=== PATIENT | female | born 1975 | race Caucasian/White ===

== ENCOUNTER 2016-07-19 00:13 | Emergency (ER) | payer BC ==
[~2016-07-19] VITALS: Ht 172.7 cm; Wt 120.9 kg
[~2016-07-19 00:13] MED LIST: FRRS300 PO; GLC500 PO; LEVO75TA33 PO
[2016-07-19 00:18] VITALS: TEMP 36.7; Ht 172.7 cm; Wt 120.9 kg
[2016-07-19 00:26] VITALS: O2SAT 98
[2016-07-19] MEDS ORDERED: KETOROLAC TROMETHAMINE 30 MG/ML VIAL IV STA (00:37)
[2016-07-19] MEDS ORDERED: SODIUM CHLORIDE 0.9% 1000ML 1,000 ML IV ONE (00:45)
[2016-07-19 00:47] LABS: BASO % 0.3 %; BASO ABS # 0.03 K/uL (0-0.2); COMPLETE YES; EOS % 2.4 %; HEMATOCRIT 41.2 % (37-47); IG% 0.2 %; LYMPH % 33.1 %; LYMPH ABS # 3.18 K/uL (1.2-3.4); MEAN CELL VOLUME 86.7 fL (80-100); MEAN CORPUSCULAR HEMOGLOBIN 28.2 pg (25-34); MEAN CORPUSCULAR HGB CONC 32.5 g/dl (32-36); MEAN PLATELET VOLUME 9.4 fL (7.4-10.4); MONO % 9.7 %; NEUT % 54.3 %; PLATELET COUNT 366 K/uL (130-400); RED BLOOD COUNT 4.75 M/uL (4.2-5.4); WHITE BLOOD COUNT 9.61 K/uL (4.8-10.8)
[2016-07-19 00:53] LABS: BUN/CREATININE RATIO 13.3 (10-20); CALCIUM 8.8 mg/dl (8.5-10.1); CREATININE 0.9 mg/dl (0.60-1.20); MAGNESIUM 2.1 mg/dl (1.8-2.4); POTASSIUM 3.7 mmol/L (3.5-5.1)
[2016-07-19 01:03] LABS: ALB/GLOB RATIO 0.9 (0.9-2); CKMB/CK RATIO 0.8 (0-3.0); THYROID STIMULATING HORMONE 3.02 uIu/ml (0.300-4.500)
[2016-07-19 01:50] LABS: URINE APPEARANCE CLEAR (CLEAR); URINE BILIRUBIN NEG (NEG); URINE COLOR YELLOW; URINE NITRITE NEG (NEG); URINE SPECIFIC GRAVITY 1.008 (1.000-1.030); UROBILINOGEN NEG (NEG); ZZUR CULT IF INDIC CLEAN CATCH NO
[2016-07-19] MEDS ORDERED: LEVO137C2 PO (02:09)
[2016-07-19] MEDS ORDERED: FERR1TAB23 PO (02:09)
[2016-07-19] MEDS ORDERED: CHOL20009 PO (02:09)
[2016-07-19] MEDS ORDERED: T3 PO (02:14)
[2016-07-19 02:18] LABS: MANUAL MICROSCOPIC REQUIRED? NO; REVIEW REQ? NO
[2016-07-19] MEDS ORDERED: ALUMINUM/MAGNESIUM SUSP 30 ML UDC ONE (02:42)
[2016-07-19] MEDS ORDERED: LIDOCAINE HCL 2% VISC SOLN 20 ML UDC ONE (02:42)
[2016-07-19] MEDS ORDERED: GI COCKTAIL PO ONE (02:45)
--- NOTE | 2016-07-19 03:19 | EMERGENCY ROOM VISIT NOTE ---
ED Visit Note First contact with patient: 02:32 The patient was seen and examined with Kd Chavez PA-C. I agree with the history, physical and findings. Please see the note for disposition and details. ECG and troponin x 2 negative. D Dimer negative. Outpatient follow up discussed. Will return for worsening symptoms.
[2016-07-19 03:45] VITALS: BP 131/74; PULSE 66; O2SAT 99
--- NOTE | 2016-07-19 08:18 | DIAGNOSTIC IMAGING REPORT ---
CHEST 2 VIEWS ROUTINE CLINICAL HISTORY: Central chest pain. COMPARISON STUDY: Chest radiograph May 16, 2011. FINDINGS: Lung volumes are normal. Lungs are clear. There is no pneumothorax or pleural effusion. Cardiac size is normal. Mediastinal contours are normal. There is no evidence of pulmonary edema. IMPRESSION: No acute cardiopulmonary findings. Electronically signed by: Cameron Goodman M.D. 07/19/2016 8:17 AM Dictated Date/Time: 07/19/2016 8:17 AM
--- NOTE | 2016-07-20 00:18 | EMERGENCY ROOM VISIT NOTE ---
History First contact with patient: 00:18 Chief Complaint: CHEST PAIN Stated Complaint: CHEST PAIN Nursing Triage Summary: pt states a couple nights ago she was woken up with cp, and it has just got worse since then, feels like sore muscle History of Present Illness The patient is a 40 year old female who presents to the Emergency Room with complaints of substernal chest pain that woke her from sleep about 2 hours ago. Patient states that her pain is a dull 2/10 that feels like an ache. She does have recent travel history to [place]. She is without fever, chills, shortness of breath, or extremity swelling. The patient does not have a history of cardiac disease. She does not report radiation of her pain. She has not taken anything [id number] for her discomfort. Review of Systems More than 10 systems were reviewed and otherwise negative with the exception of history of present illness. Past Medical/Surgical History Hypothyroid Family History No pertinent family history Social History Smoking Status: Never Smoker Alcohol Use: none Marital Status: Occupation Status: unemployed Current/Historical Medications Scheduled Cholecalciferol (Vitamin D), 1-2 CAP PO DAILY Ferrous Sulfate (Iron), 650 MG PO DAILY Levothyroxine Sodium (Tirosint), 137 MCG PO DAILY [T3], 0.25 TAB PO Q2D Allergies Coded Allergies: Spironolactone (Verified Allergy, Intermediate, RASH/SWELLING, 07/19/16) Penicillins (Verified Allergy, Unknown, RASH/BAD YEAST INFECTIONS, 07/19/16 ) Physical Exam Vital Signs Date Time Temp Pulse Resp B/P Pulse Ox O2 Delivery O2 Flow Rate FiO2 07/19/16 03:45 66 16 131/74 99 Room Air 07/19/16 01:55 65 07/19/16 01:54 64 18 125/79 98 Room Air 07/19/16 01:13 75 18 135/89 98 Room Air 07/19/16 00:26 98 Room Air 07/19/16 00:18 36.7 79 17 175/90 99 Room Air Pain Rating (0-10): 0 Physical Exam VITALS: Vitals are noted on the nurse's note and reviewed by myself. Vital signs stable. GENERAL: Well-developed, well-nourished, white female, who is in no acute distress and resting comfortably. Patient is cooperative with the examination. HEAD: Normocephalic atraumatic. NECK: Supple without nuchal rigidity. No lymphadenopathy. No thyromegaly. Cervical spine is nontender. HEART: Regular rate and rhythm without murmurs gallops or rubs. LUNGS: Clear to auscultation bilaterally without wheezes, rales or rhonchi. No retractions or accessory muscle use. ABDOMEN: Positive normal bowel sounds x 4. Soft, nontender, without masses or organomegaly. No guarding or rebound tenderness. MUSCULOSKELETAL: No muscle atrophy, erythema, or edema noted. Full range of motion without joint tenderness in all extremities. Negative Homans sign bilateral Medical Decision & Procedures ER Provider Diagnostic Interpretation: CHEST 2 VIEWS ROUTINE CLINICAL HISTORY: Central chest pain. COMPARISON STUDY: Chest radiograph May 16, 2011. FINDINGS: Lung volumes are normal. Lungs are clear. There is no pneumothorax or pleural effusion. Cardiac size is normal. Mediastinal contours are normal. There is no evidence of pulmonary edema. IMPRESSION: No acute cardiopulmonary findings Laboratory Results 07/19/16 00:25 Red Blood Count 4.75, Mean Corpuscular Volume 86.7, Mean Corpuscular Hemoglobin 28.2, Mean Corpuscular Hemoglobin Concent 32.5, Mean Platelet Volume 9.4, Neutrophils (%) (Auto) 54.3, Lymphocytes (%) (Auto) 33.1, Monocytes (%) (Auto) 9.7, Eosinophils (%) (Auto) 2.4, Basophils (%) (Auto) 0.3, Neutrophils # (Auto) 5.22, Lymphocytes # (Auto) 3.18, Monocytes # (Auto) 0.93, Eosinophils # (Auto) 0.23, Basophils # (Auto) 0.03 07/19/16 00:25 Test 07/19/16 00:25 07/19/16 00:41 07/19/16 01:35 07/19/16 02:52 White Blood Count 9.61 K/uL (4.8-10.8) Red Blood Count 4.75 M/uL (4.2-5.4) Hemoglobin 13.4 g/dL (12.0-16.0) Hematocrit 41.2 % (37-47) Mean Corpuscular Volume 86.7 fL (80-100) Mean Corpuscular Hemoglobin 28.2 pg (25-34) Mean Corpuscular Hemoglobin Concent 32.5 g/dl (32-36) Platelet Count 366 K/uL (130-400) Mean Platelet Volume 9.4 fL (7.4-10.4) Neutrophils (%) (Auto) 54.3 % Lymphocytes (%) (Auto) 33.1 % Monocytes (%) (Auto) 9.7 % Eosinophils (%) (Auto) 2.4 % Basophils (%) (Auto) 0.3 % Neutrophils # (Auto) 5.22 K/uL (1.4-6.5) Lymphocytes # (Auto) 3.18 K/uL (1.2-3.4) Monocytes # (Auto) 0.93 K/uL (0.11-0.59) Eosinophils # (Auto) 0.23 K/uL (0-0.5) Basophils # (Auto) 0.03 K/uL (0-0.2) RDW Standard Deviation 42.4 fL (36.4-46.3) RDW Coefficient of Variation 13.3 % (11.5-14.5) Immature Granulocyte % (Auto) 0.2 % Immature Granulocyte # (Auto) 0.02 K/uL (0.00-0.02) Anion Gap 9.0 mmol/L (3-11) Est Creatinine Clear Calc Drug Dose 112.6 ml/min Estimated GFR () 92.0 Estimated GFR (Non- 79.4 BUN/Creatinine Ratio 13.3 (10-20) Calcium Level 8.8 mg/dl (8.5-10.1) Magnesium Level 2.1 mg/dl (1.8-2.4) Total Bilirubin 0.4 mg/dl (0.2-1) Aspartate Amino Transf (AST/SGOT) 14 U/L (15-37) Alanine Aminotransferase (ALT/SGPT) 22 U/L (12-78) Alkaline Phosphatase 60 U/L (45-117) Total Creatine Kinase 83 U/L (26-192) Creatine Kinase MB 0.7 ng/ml (0.5-3.6) Creatine Kinase MB Ratio 0.8 (0-3.0) Total Protein 7.6 gm/dl (6.4-8.2) Albumin 3.7 gm/dl (3.4-5.0) Globulin 3.9 gm/dl (2.5-4.0) Albumin/Globulin Ratio 0.9 (0.9-2) Lipase 118 U/L (73-393) Thyroid Stimulating Hormone (TSH) 3.020 uIu/ml (0.300-4.500) Bedside D-Dimer 364 ng/mlFEU (0-450) Urine Color YELLOW Urine Appearance CLEAR (CLEAR) Urine pH 7.0 (4.5-7.5) Urine Specific [place]aker 1.008 (1.000-1.030) Urine Protein NEG (NEG) Urine Glucose (UA) NEG (NEG) Urine Ketones NEG (NEG) Urine Occult Blood 2+ (NEG) Urine Nitrite NEG (NEG) Urine Bilirubin NEG (NEG) Urine Urobilinogen NEG (NEG) Urine Leukocyte Esterase NEG (NEG) Urine WBC (Auto) 0 /hpf (0-5) Urine RBC (Auto) 0-4 /hpf (0-4) Urine Hyaline Casts (Auto) 0 /lpf (0-5) Urine Epithelial Cells (Auto) 5-10 /lpf (0-5) Urine Bacteria (Auto) NEG (NEG) Bedside Troponin I 0.000 ng/ml (0-0.045) Medications Administered Medications (Trade) Dose Ordered Sig/Dallin Route Start Time Stop Time Status Last Admin Dose Admin Sodium Chloride (Nss 1000ml) 1,000 ml @ 999 mls/hr Q1H1M ONCE IV 07/19/16 00:45 07/19/16 01:45 DC 07/19/16 00:42 999 MLS/HR Ketorolac Tromethamine (Toradol Inj) 30 mg NOW STAT IV 07/19/16 00:37 07/19/16 00:40 DC 07/19/16 00:43 30 MG Miscellaneous Medication (Gi Cocktail) 24 ml NOW ONCE PO 07/19/16 02:45 07/19/16 02:46 DC 07/19/16 02:45 24 ML Al Hydroxide/Mg Hydroxide (Maalox Susp) 30 ml STK-MED ONCE .ROUTE 07/19/16 02:42 07/19/16 02:45 DC 07/19/16 02:49 30 ML Lidocaine HCl (Viscous Lidocaine 2% Soln) 20 ml STK-MED ONCE .ROUTE 07/19/16 02:42 07/19/16 02:46 DC 07/19/16 02:49 20 ML ECG Change: Normal sinus rhythm at 82 bpm Normal ECG When compared with ECG of 21-SARA-2012 19:01, No significant change was found Confirmed by ANGELIC LEW MD ([id number]) on 07/19/2016 12:51:00 PM ED Course Physical exam and history were performed. Nursing notes and EMR were reviewed. Patient appears to have chest pain symptoms for the past several hours. The patient does not appear toxic on examination. EKG was performed was normal sinus rhythm at [address] elevation or evidence of ischemia. IV access was established and labs were obtained. Chest x-ray was performed. The patient was hydrated and medicated as above. The patient is as above and was reviewed. She does not have a significantly elevated white blood cell count, gross anemia, bandemia, or significant electrolyte imbalance. Lipase and transaminases are nondiagnostic. TSH is with euthyroid state. D-dimer 1 is negative. Troponin 2 was negative. Chest x-ray was without significant acute findings. The case was discussed with my attending physician, Dr Ram, who was with apparently evaluated the patient. We agreed the patient appears stable for discharge home. She does not appear to have an acute cardiopulmonary process. Her symptoms could be viral in origin, or possible GI related. The patient is to follow closely with her primary care physician for further care management. She was otherwise invited back to ER with any new, worsening, or concerning symptoms. The chart was completed utilizing [employer] Speech Voice Recognition Software. Grammatical errors, random word insertions, pronoun errors, and incomplete sentences are an occasional consequence of this system due to software limitations, ambient noise, and hardware issues. Any formal questions or concerns about the content, text, or information contained within the body of this dictation should be directly addressed to the provider for clarification. . Medical Decision Differential diagnosis includes, but is not limited to: Myocardial infarction, dysrhythmia, pericarditis, pneumothorax, aortic aneurysm/dissection, DVT/PE, anxiety, GERD, PUD, electrolyte imbalance, thyroid disorder, pneumonia, bronchitis, pancreatitis, and others Impression Primary Impression: Chest pain Departure Information Dispostion Home / Self-Care Condition GOOD Forms HOME CARE DOCUMENTATION FORM, IMPORTANT VISIT INFORMATION Patient Instructions [facility] Additional Instructions You were seen and evaluated today on an emergency basis only. This is not a substitute for, or an effort to provide, complete comprehensive medical care. It is not possible to recognize and treat all injuries or illnesses in a single emergency department visit. For this reason it is recommended that you followup with your primary care physician on Wednesday or Wednesday for ongoing care and evaluation. Drink plenty fluids and remain well hydrated. Continue your home medications as prescribed You are welcome to return to the emergency department anytime with new, worsening, or concerning symptoms.
[2016-08-07] MEDS ORDERED: LIOT5TAB PO (12:44)
[2016-08-07] MEDS ORDERED: ASCO-63 PO (12:44)
[2016-08-28] MEDS ORDERED: OXYC-57 PO (09:13)
[2016-08-28] MEDS ORDERED: IBUP600T44 PO (09:13)
== END 2016-07-19 03:45 | disposition home or self-care (01) ==
LOC: C.EDB 00:15 → C.EDA 03:45
DX: R07.9 Chest pain, unspecified (principal); E03.9 Hypothyroidism, unspecified; Z79.899 Other long term (current) drug therapy

== ENCOUNTER 2016-08-28 06:37 | Day surgery (SDC) | payer BC ==
[2016-08-07 12:44] VITALS: BMI 40.0
--- NOTE | 2016-08-07 13:05 | PAT Medication Instructions ---
Service Date Aug 07, 2016. Current Home Medication List Ascorbic Acid (Vitamin C), 7-8 TAB PO LUNCH Cholecalciferol (Vitamin D), 3-4 CAP PO LUNCH Ferrous Sulfate (Iron), 650 MG PO LUNCH Levothyroxine Sodium (Tirosint), 137 MCG PO QAM Liothyronine Sodium (Cytomel), 0.25 TAB PO Q2D Medication Instructions For Your Scheduled Surgery - Hold the following medications the morning of surgery: Ascorbic Acid (Vitamin C), 7-8 TAB PO LUNCH Cholecalciferol (Vitamin D), 3-4 CAP PO LUNCH Ferrous Sulfate (Iron), 650 MG PO LUNCH - Take the following medications the morning of surgery with a sip of water: Levothyroxine Sodium (Tirosint), 137 MCG PO QAM Liothyronine Sodium (Cytomel), 0.25 TAB PO Q2D If you have any questions please call us at [phone] or [phone] ( Sandra) or [phone]
[2016-08-07 13:32] LABS: BASO % 0.2 %; BASO ABS # 0.02 K/uL (0-0.2); COMPLETE YES; IG% 0.2 %; LYMPH % 30.3 %; LYMPH ABS # 2.62 K/uL (1.2-3.4); MEAN CELL VOLUME 86.3 fL (80-100); MEAN CORPUSCULAR HEMOGLOBIN 28.1 pg (25-34); MEAN CORPUSCULAR HGB CONC 32.6 g/dl (32-36); MEAN PLATELET VOLUME 9.5 fL (7.4-10.4); MONO % 8.4 %; NEUT % 56.9 %; PLATELET COUNT 327 K/uL (130-400); RED BLOOD COUNT 4.52 M/uL (4.2-5.4); WHITE BLOOD COUNT 8.65 K/uL (4.8-10.8)
[~2016-08-28] VITALS: Ht 175.3 cm; Wt 122.5 kg
[~2016-08-28 06:37] MED LIST changes: +ASCO-63 PO; +CEFAZOLIN 3000 MG/65 ML D5W 50 ML IV SCH; +CHOL20009 PO; +FERR1TAB23 PO; -FRRS300 PO; -GLC500 PO; +LACTATED RINGER'S 1000ML 1,000 ML IV SCH; +LEVO137C2 PO; -LEVO75TA33 PO; +LIOT5TAB PO; +PATIENT'S ALLERGY INFO NEEDS ENTERED SCH
[2016-08-28] MEDS ORDERED: LIDOCAINE HCL 2% 2 ML VIAL (20MG/ML) ONE (06:45)
[2016-08-28] MEDS ORDERED: ROCURONIUM BROMIDE 10 MG/ML 5 ML VIAL ONE (06:45)
[2016-08-28] MEDS ORDERED: MIDAZOLAM HCL 1 MG/ML 2ML VIAL ONE (06:45)
[2016-08-28] MEDS ORDERED: DEXAMETHASONE SOD INJ 4 MG/ML VIAL ONE (06:45)
[2016-08-28] MEDS ORDERED: FENTANYL CITRATE INJ 50 MCG/1 ML 2 ML VIAL ONE (06:45)
[2016-08-28] MEDS ORDERED: PROPOFOL IV EMULSION 10 MG/ML 20 ML VIAL IV ONE (06:45)
[2016-08-28] MEDS ORDERED: ONDANSETRON INJ 2 MG/ML 2 ML VIAL ONE (06:45)
[2016-08-28 06:57] VITALS: BP 145/86; PULSE 84; TEMP 36.8; O2SAT 98; Ht 175.3 cm; Wt 122.5 kg
[2016-08-28] MEDS ORDERED: ACET-1256 PO (07:07)
[2016-08-28 07:11] LABS: BASO % 0.4 %; BASO ABS # 0.03 K/uL (0-0.2); EOS % 3.6 %; HEMATOCRIT 39.3 % (37-47); IG% 0.1 %; LYMPH % 26.1 %; LYMPH ABS # 1.91 K/uL (1.2-3.4); MEAN CELL VOLUME 87.5 fL (80-100); MEAN CORPUSCULAR HEMOGLOBIN 28.1 pg (25-34); MEAN PLATELET VOLUME 9.1 fL (7.4-10.4); MONO % 10.4 %; NEUT % 59.4 %; PLATELET COUNT 334 K/uL (130-400); RED BLOOD COUNT 4.49 M/uL (4.2-5.4); WHITE BLOOD COUNT 7.31 K/uL (4.8-10.8)
[2016-08-28 07:20] LABS: COMPLETE YES; MEAN CORPUSCULAR HGB CONC 32.1 g/dl (32-36)
--- NOTE | 2016-08-28 07:47 | History & Physical Bridge Note ---
H&P Re-Evaluation Bridge Note: I have examined the patient, reviewed the History & Physical and in the interval since the performance of the History & Physical I have noted the following changes of clinical significance: No changes noted
[2016-08-28] MEDS ORDERED: BUPIVACAINE 0.5 % 5 MG/1 ML MPF 30ML VIAL ONE (08:04)
[2016-08-28] MEDS ORDERED: KETOROLAC TROMETHAMINE 30 MG/ML VIAL ONE (08:30)
[2016-08-28] MEDS ORDERED: MoRPHine SULFATE 2 MG/ML CARP ONE (08:31)
[2016-08-28] MEDS ORDERED: GLYCOPYRROLATE INJ 0.2 MG/ML VIAL ONE (09:04)
[2016-08-28] MEDS ORDERED: NEOSTIGMINE METHYLSULFATE 5 MG/5 ML SYR ONE (09:04)
[2016-08-28] MEDS ORDERED: SODIUM CHLORIDE 0.9% 1000ML 1,000 ML IV SCH (09:11)
[2016-08-28] MEDS ORDERED: OXYC-57 PO (09:13)
[2016-08-28] MEDS ORDERED: IBUP600T44 PO (09:13)
[2016-08-28] MEDS ORDERED: KETOROLAC TROMETHAMINE 30 MG/ML VIAL IV. PRN (09:15)
[2016-08-28] MEDS ORDERED: ONDANSETRON INJ 2 MG/ML 2 ML VIAL IV PRN ×2 (09:15→09:30)
[2016-08-28] MEDS ORDERED: IBUPROFEN 600 MG TAB PO PRN (09:15)
[2016-08-28] MEDS ORDERED: OXYCODONE/ACETAMINOPHEN 5-325 TAB PO PRN ×2 (09:15)
--- NOTE | 2016-08-28 09:15 | Discharge Instructions ---
Discharge Instructions Date of Service August 28, 2016. Visit Reason for Visit: Heavy Menstrual Bleeding, Requesting Permanent Errol Discharge Discharge Diagnosis / Problem: S/p D&C, Endometrial Ablation, Laparoscopic bilateral tubal ligation Discharge Goals Goal(s): Decrease discomfort Activity Recommendations Activity Limitations: per Instructions/Follow-up section Anesthesia . Post Anesthesia Instructions: If you have had General Anesthesia or IV Sedation: * Do not drive today. * Resume driving when surgeon permits. * Do not make important decisions or sign legal documents today. * Call surgeon for: 1. Temperature elevations greater than 101 degrees F. 2. Uncontrollable pain. 3. Excessive bleeding. 4. Persistent nausea and vomiting. 5. Medication intolerance (nausea, vomiting or rash). * For nausea and vomiting use only clear liquids such as: tea, soda, bouillon until nausea subsides, then gradually increase diet as tolerated. * If you have any concerns or questions, call your surgeon's office. If physician is unavailable and it is an emergency, call 911 or go to the nearest emergency room. . Instructions / Follow-Up Instructions / Follow-Up SPECIAL CARE INSTRUCTIONS: * Check temperature twice daily for one week. Report any elevation over 100.4 degrees Fahrenheit (38.0 degrees Celsius). * Call office in the next few days for return appointment. * You may experience some vaginal spotting and/or bleeding, this is normal for one or two weeks and should not alarm you. * Post-operative discomfort may consist of a sore throat, a "bloated" feeling and pain in the shoulders. These are normal symptoms which usually only last for two or three days. ACTIVITY RECOMMENDATIONS: * Avoid tampons, douching, hot tubs, pools, and intercourse until 4 weeks * May shower as usual. * No strenuous activity for 24-48 hours. RETURN TO SCHOOL/WORK: * You may return to school or work after 48 hours unless specified by your physician. DIET: * Resume previous diet. MEDICATIONS: Resume previous medications unless instructed otherwise by your surgeon. Ibuprofen 200mg 2-3 tablets every 4-6 hours as needed --OR-- Aleve 2 tablets every 8-12 hours as needed for post-operative discomfort Medications are over the counter. Tylenol may be used if above medications are contraindicated or not preferred. Medication should be taken with food or milk. do not take on an empty stomach. SPECIAL CARE INSTRUCTIONS: * Check temperature twice daily for one week. Report any elevation over 101 degrees. * Call office if you experience increased pelvic pain or discomfort not relieved by pain medicine, if you have foul smelling vaginal discharge, if you have bleeding that is heavier than a normal menstrual flow. If you are changing a maxi pad every 1- 2 hours, this is too heavy. vaginal spotting is normal for 1-2 weeks. FOLLOW UP VISIT: Call your doctor's office for a post-operative visit. Diet Recommendations Recommended Home Diet: no limitations, resume previous diet Procedures Procedures Performed: Hysteroscopy Dilation Currettage, Novasure Endometrial Ablation, Laparoscopic Bilateral Tubal Ligation Pending Studies Studies pending at discharge: no Medical Emergencies . Who to Call and When: Medical Emergencies: If at any time you feel your situation is an emergency, please call 911 immediately. . Non-Emergent Contact Non-Emergency issues call your: Photographic Technician . . "Provider Documentation" section prepared by Salvador De León. . [facility] Drug Monitoring Program Search Results: no issues identified
--- NOTE | 2016-08-28 09:23 | [facility] Post Operative Brief Note ---
Immediate Operative Summary Operative Date August 28, 2016. Pre-Operative Diagnosis Heavy Menstral Bleeding, Requesting permanent steralization Post-Operative Diagnosis same Procedure(s) Performed Hysteroscopy Dilation Currettage, Novasure Endometrial Ablation, Laparoscopic Bilateral Tubal Ligation Surgeon Dr. Salvador De León Food [employer] Beverage Server Surgeon(s) none Estimated Blood Loss 5ml Findings Uterus sounded to 11 cm with a cervical length of 4.5 cm. Uterus was at midline and freely mobile. Upon hysteroscopic exam bilateral tubal ostia were clearly visualized. There were no submucosal fibroids or polyps noted. Upon sharp curettage a moderate amount of endometrial tissue was obtained and sent to pathology. A novasure endometrial ablation was performed with setting of 6.5 cm for cavity length, 5.3 cm for cavity width. Ablation was completed at a power of 180 buckner for 1 minute. Once the ablation was completed the hysteroscope was reintroduced into the cavity noting an excellent endometrial burn with no incidental injury or perforation of the uterus. All instruments were then removed from the uterus and a [employer] uterine manipulator was placed within the uterine cavity in an anteverted fashion. Upon laparoscopic exam uterus was at midline and freely mobile, bilateral ovaries and tubes were grossly normal. The right fallopian tube was followed out to its fimbriated end grasped at midpoint with the kleppingers and fulgurated at multiple points throughout its course. The same was completed on the left fallopian tube. Once bilateral tubes were ligated the procedure was found to be complete. The patient tolerated the procedure well and was sent to recovery with stable vital signs. Fluids (cc crystalloids) 800 Specimens A. endometrial currettings Drains None Anesthesia General Complication(s) None Disposition Recovery Room / PACU
[2016-08-28] MEDS ORDERED: EpHEDrine SULFATE INJ 50 MG/ML AMP IV PRN (09:30)
[2016-08-28] MEDS ORDERED: FENTANYL CITRATE INJ 50 MCG/1 ML 2 ML VIAL IV PRN (09:30)
[2016-08-28] MEDS ORDERED: PROMETHAZINE HCL INJ 6.25 MG in SODIUM CHLORIDE 0.9% 50ML 50 ML IV PRN (09:30)
[2016-08-28] MEDS ORDERED: ATROPINE SULFATE 0.1 MG/ML 5ML SYR IV PRN (09:30)
--- NOTE | 2016-08-28 10:00 | OPERATIVE REPORT ---
DATE OF OPERATION: 08/28/2016 PREOPERATIVE DIAGNOSES: 1. Heavy menstrual bleeding. 2. Requesting permanent sterilization. POSTOPERATIVE DIAGNOSES: Same. OPERATIVE PROCEDURE: 1. Dilation and curettage, hysteroscopy and NovaSure endometrial ablation. 2. Laparoscopic bilateral tubal ligation. SURGEON: Dr. Salvador De León. AGRICULTURAL AGENT: None. ANESTHESIA: General. ESTIMATED BLOOD LOSS: 5 mL. IV FLUIDS: 800 mL crystalloids. URINE OUTPUT: 375 mL clear, yellow urine. SPECIMENS: Endometrial curettings. DRAINS: None. COMPLICATIONS: None. DISPOSITION: Recovery room. OPERATIVE FINDINGS: Uterus sounded to 11 cm with a cervical length of 4.5 cm. The uterus was at midline and freely mobile. Upon hysteroscopic exam, bilateral tubal ostia were clearly visualized. There were no submucosal fibroids or polyps noted. Upon sharp curettage, moderate amount of endometrial tissue was obtained and sent to pathology. A NovaSure endometrial ablation was then performed with settings of 6.5 cm for cavity length and 5.3 cm for cavity with. Ablation was completed at a power of 180 buckner for 1 minute. Once the ablation was completed, the hysteroscope was reintroduced into the cavity, noting an excellent endometrial burn with no incidental injury or perforation of the uterus. All instruments were then removed from the uterus and the [employer] uterine manipulator was then placed within the uterine cavity in an anteverted fashion and the patient was then ready for the laparoscopic portion of the procedure. Upon laparoscopic exam, uterus was at midline and freely mobile. Bilateral ovaries and tubes were grossly normal. No other intra-abdominal or pelvic pathology noted. The right fallopian tube was followed out to its fimbriated end, grasped at the midpoint with the Kleppingers and fulgurated at multiple points throughout its course. The same was completed on the left fallopian tube. Once bilateral tubes were ligated, the procedure was found to be complete. The patient tolerated the procedure well and was sent to recovery with stable vital signs. OPERATIVE PROCEDURE IN DETAIL: The patient was taken to the operating room, where general anesthesia was administered. Once anesthesia was found to be adequate, the patient was placed in the dorsal lithotomy position and was prepped and draped in a manner appropriate for the procedure. The bladder was then drained of clear yellow urine. A weighted speculum was placed into the vagina and the anterior lip of the cervix was grasped with a single tooth tenaculum. The uterus was sounded to 11 cm. The cervix was then dilated using Katt dilators. Hysteroscope was then introduced into the endometrial cavity and a thorough exam was then performed with the above noted findings. Cervical length was measured at 4.5 cm. The hysteroscope was then removed and utilizing a medium Carpio curette, a sharp curettage of the endometrial cavity was performed, obtaining a moderate amount of endometrial tissue, which was sent to pathology. At this point, the NovaSure endometrial ablation tool was assembled and introduced into the endometrial cavity. The settings were set at 6.5 cm for cavity length and 5.3 cm for cavity width. Endometrial ablation was then performed at a power of 180 buckner for 1 minute according to the NovaSure protocol. Once the ablation was completed, the NovaSure tool was removed. The hysteroscope was then reintroduced into the endometrial cavity, noting an excellent endometrial burn with no incidental injury or perforation of the uterus. Hysteroscope was then removed and a [employer] uterine manipulator was then placed within the uterus in an anteverted fashion. All other instruments were then removed from the vagina. The patient was then readied for the laparoscopic portion of the procedure. Attention was then directed towards the abdomen. 0.5% Marcaine was injected below the umbilicus and a 5-mm skin incision was made in a horizontal fashion below the umbilicus. A Veress needle was then introduced into the abdominal cavity. Normal saline was injected with no fecal content aspirated. A pneumoperitoneum was then created. The Veress needle was then removed and a 5-mm trocar was then placed within the abdomen under direct laparoscopic visualization. The patient was then placed in Trendelenburg position and the bowel contents were displaced superiorly away from the pelvis. A second a 5-mm skin incision was made 2 fingerbreadths above the pubic symphysis at midline in a horizontal fashion and a second 5 mm trocar was placed within the abdomen under direct laparoscopic visualization. A thorough examination of the abdomen and pelvis was then performed with the above noted findings. Attention was then directed towards the right fallopian tube, which was followed out to its fimbriated end, grasped in the midpoint with the Kleppingers and fulgurated at multiple points throughout its course. Attention was then directed towards the left fallopian tube, which was likewise followed out to its fimbriated end, grasped at midpoint with the Kleppingers and fulgurated at multiple points throughout its course. At this point, the procedure was found to be complete. All instruments were removed from the abdomen and as much CO2 gas was allowed to percolate through open cannulas. The cannulas were then removed. Both skin incisions were then closed with 4-0 Monocryl in a subcuticular fashion. Excellent hemostasis was noted at both incisions. The [employer] uterine manipulator was then removed from the vagina. The patient tolerated the procedure well and was sent to recovery with stable vital signs. All sponge and instrument counts were found to be correct x2. I attest to the content of the Intraoperative Record and any orders documented therein. Any exceptio ns are noted below.
[2016-08-28 10:10] VITALS: BP 129/79; PULSE 59; TEMP 36.8; O2SAT 99
--- NOTE | 2016-08-28 10:20 | Anesthesiology Progress Note ---
Anesthesia Post Op Note Date & Time August 28, 2016 at 10:20 Vital Signs Pain Intensity: 0 Vital Signs Past 12 Hours Date Time Temp Pulse Resp B/P Pulse Ox O2 Delivery O2 Flow Rate FiO2 08/28/16 10:05 36.4 58 16 109/69 100 Nasal Cannula 3 08/28/16 09:55 59 16 109/64 97 Nasal Cannula 3 08/28/16 09:45 55 16 119/67 99 Nasal Cannula 3 08/28/16 09:35 55 18 119/67 100 Mask 10 08/28/16 09:26 36.3 60 18 120/71 100 Mask 10 08/28/16 06:57 36.8 84 20 145/86 98 Room Air Notes Mental Status: alert / awake / arousable, participated in evaluation Pt Amnestic to Procedure: Yes Nausea / Vomiting: adequately controlled Pain: adequately controlled Airway Patency, RR, SpO2: stable & adequate BP & HR: stable & adequate Hydration State: stable & adequate Anesthetic Complications: no major complications apparent
[2016-08-28 10:40] VITALS: BP_SYST 112; BP_SYST 129; BP_DIAS 64; BP_DIAS 79; PULSE 59; TEMP 36.8; O2SAT 99
[2016-08-28] MEDS ORDERED: IBUPROFEN 600 MG TAB ONE (10:41)
[2016-08-28 11:10] VITALS: BP 115/64; PULSE 62; TEMP 36.5; O2SAT 99
[2016-08-28 12:10] VITALS: BP 109/70; PULSE 67; TEMP 36.8; O2SAT 98
== END 2016-08-28 12:34 | disposition home or self-care (01) ==
LOC: C.ACU 06:37
PROVIDERS: ATTEND Obstetrics & Gynecology
DX: N92.0 Excessive and frequent menstruation with regular cycle (principal); Z30.2 Encounter for sterilization

== ENCOUNTER 2017-09-11 12:07 | Emergency (ER) | payer BC, OTHER ==
[~2017-09-11] VITALS: Ht 175.3 cm; Wt 105.0 kg
[~2017-09-11 12:07] MED LIST changes: +ACET-1256 PO; -CEFAZOLIN 3000 MG/65 ML D5W 50 ML IV SCH; -LACTATED RINGER'S 1000ML 1,000 ML IV SCH; -PATIENT'S ALLERGY INFO NEEDS ENTERED SCH
[2017-09-11 12:09] VITALS: TEMP 37.2; Ht 175.3 cm; Wt 105.0 kg
[2017-09-11] MEDS ORDERED: PROPARACAINE HCL 0.5% OP SOLN 15 ML BTL ONE (12:16)
[2017-09-11] MEDS ORDERED: CIPROFLOXACIN HCL 0.3% OP SOLN 2.5 ML BTL OP STA (12:28)
--- NOTE | 2017-09-11 12:37 | EMERGENCY ROOM VISIT NOTE ---
ED Visit Note First contact with patient: 12:12 CHIEF COMPLAINT: Foreign body of the left eye HISTORY OF PRESENT ILLNESS: This 42-year-old female patient presents to the emergency department, ambulatory, complaining of pain and foreign body sensation in the left eye. The patient states she was changing a light bulb when she felt something fall into the left eye. She is uncertain what the foreign body may be. There has been a constant moderate pain and irritation, redness and tearing in the eye. The vision has not been decreased over all. The patient does not wear contacts. The patient rates the pain as 5/10. The patient has not had previous injuries to this eye. Tetanus shot is up to date. REVIEW OF SYSTEMS: A 6 system review of systems was completed with positives and pertinent negatives listed in the HPI. ALLERGIES: Penicillin, Spironolactone MEDICATIONS: Vitamin C, vitamin D, iron, Tirosint, Cytomel PMH: Salvatoer's, hypothyroidism SOCIAL HISTORY: The patient is locally with family. She denies drug, alcohol, tobacco use. PHYSICAL EXAM: Vital Signs: Reviewed Nurse's notes, vital signs stable. Visual acuity 20/25 bilaterally. GENERAL: This is a 42-year-old female, in no acute distress, but who is uncomfortable from the eye problem. Well-developed well- nourished. EYES: The pupils are equal round and reactive to light and accommodation. EOMs are full and without tenderness. There is moderate discharge from the left eye which is injected. There is a small black foreign body visible on the cornea at 12:00. There is no foreign body visible under the eyelid after lid eversion. Small foreign body as noted above was seen embedded in the cornea under slit lamp exam. The cornea was clear and no hyphema was seen. Fluorescein uptake was observed with ultraviolet light significant for a corneal abrasion only around the previous location of the foreign body. EMERGENCY DEPARTMENT COURSE: I examined the patient. Alcaine 2 drops were placed in the patient's left eye. A slit lamp exam was performed as above. Verbal consent was obtained to perform the procedure. The small foreign body was removed using a moistened cotton swab. Ciloxan two drops was placed in the patient's left eye. Discharge instructions reviewed. The patient was discharged home in good condition. I attest that I have personally reviewed the patient's current medication list. Patient was found to have normal blood pressure on screening and does not require follow-up. Etiologies such as conjunctivitis, corneal abrasion, uveitis, glaucoma, periorbital cellulitis, orbital cellulitis, abscess, trauma, as well as others were entertained. DIAGNOSIS: Foreign body with subsequent corneal abrasion of the left eye The chart was completed utilizing [employer] Speech voice recognition software. Grammatical errors, random word insertions, pronoun errors, and incomplete sentences are an occasional consequence of this system due to software limitations, ambient noise, and hardware issues. Any formal questions or concerns about the content, text, or information contained within the body of this dictation should be directly addressed to the provider for clarification. Current/Historical Medications Scheduled Ascorbic Acid (Vitamin C), 7-8 TAB PO LUNCH Cholecalciferol (Vitamin D), 3-4 CAP PO LUNCH Ferrous Sulfate (Iron), 650 MG PO LUNCH Levothyroxine Sodium (Tirosint), 137 MCG PO QAM Liothyronine Sodium (Cytomel), 0.25 TAB PO Q2D Scheduled PRN Acetaminophen (Tylenol), 2 TAB PO Q6 PRN for Pain or Fever Allergies Coded Allergies: Spironolactone (Verified Allergy, Intermediate, RASH/EYE SWELLING/ HIVES, 09/11/17) Penicillins (Verified Allergy, Unknown, RASH/BAD YEAST INFECTIONS, 09/11/17 ) Vital Signs Date Time Temp Pulse Resp B/P (MAP) Pulse Ox O2 Delivery O2 Flow Rate FiO2 09/11/17 12:09 37.2 75 20 98 Room Air Medications Administered Medications (Trade) Dose Ordered Sig/Dallin Route Start Time Stop Time Status Last Admin Dose Admin Proparacaine HCl (Alcaine 0.5% Oph Soln) 225 drops STK-MED ONCE .ROUTE 09/11/17 12:16 09/11/17 12:17 DC 09/11/17 12:19 225 DROPS Departure Information Impression Primary Impression: Foreign body in cornea, left eye, initial encounter Additional Impression: Left corneal abrasion Dispostion Home / Self-Care Condition GOOD Referrals Archana Pérez D.O. (PCP) Price Carmichael MD Patient Instructions ED Eye Injury Corneal Abrasion, ED Foreign Body Cornea, My [facility] Additional Instructions You have been treated in the Emergency Department today for your Corneal Abrasion. You have been prescribed Ciloxan eye drops. This is an antibiotic which will help to prevent an infection from developing in your affected eye. You should use 2 drops in the affected eye every 2 hours while awake for the first 2 days, then every 4 hours for the remaining 5 days. This is a total of a 7-day course for these antibiotic eye drops. For pain control, you can use the following [id number] medicines (if >12 yo): Ibuprofen(Motrin, Advil) may be used for fever or pain. Use 600mg every six hours as needed. Take with food. Avoid using more than 2400mg in a 24 hour period. Do not use 2400mg per day for more than three consecutive days without physician direction. Prolonged inappropriate use can lead to stomach upset or ulcers. (AND/OR) Acetaminophen(Tylenol) may be used for fever or pain. Use 1000mg every six hours as needed. Avoid using more than 3000mg in a 24 hour period. You should relax in a quiet, dark place for the rest of the day. You should wear sunglasses while outside for the next few days until your eyes are not as sensitive to the light. You should schedule a follow-up appointment in 2-3 days with your Primary Care Provider or established Eye Doctor ([facility]) for further evaluation and treatment of your Corneal Abrasion. 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 Return to the Emergency Department if your current symptoms worsen despite treatment course outlined above, or if you develop any of the following symptoms : intractable pain, visual disturbances, loss of vision, increased redness, swelling, drainage, or if you develop a fever. Problem Qualifiers Additional Impression: Left corneal abrasion Encounter type: initial encounter Qualified Codes: S05.02XA - Injury of conjunctiva and corneal abrasion without foreign body, left eye, initial encounter
[2017-09-11 12:46] VITALS: BP 118/85; PULSE 74; O2SAT 95
== END 2017-09-11 13:03 | disposition home or self-care (01) ==
LOC: C.EDB 12:08 → C.EDD 13:03
DX: S05.02XA Injury of conjunctiva and corneal abrasion without foreign body, left eye, initial encounter (principal); T15.02XA Foreign body in cornea, left eye, initial encounter; W22.8XXA Striking against or struck by other objects, initial encounter; Y93.89 Activity, other specified; Y99.8 Other external cause status; E06.3 Autoimmune thyroiditis; E03.9 Hypothyroidism, unspecified; Z88.0 Allergy status to penicillin; Z88.8 Allergy status to other drugs, medicaments and biological substances; Z79.899 Other long term (current) drug therapy